=== PATIENT | male | born 1940 | race Caucasian/White ===

== ENCOUNTER 2021-11-08 13:10 | Emergency (ER) | payer MEDICARE, SELFPAY ==
[2021-11-08] VITALS (7 sets, daily range): BP systolic 130–164; BP diastolic 56–83; PULSE 68–80; RESP 16–18; TEMP 36.2–36.8; O2SAT 98–100
--- NOTE | ~2021-11-08 | CT_ITS ---
EXAMINATION: CT abdomen pelvis w con DATE: 11/08/2021 21:46 INDICATION: Constipation TECHNIQUE: Computed tomography (CT) of the abdomen and pelvis was performed with 100 mL Omnipaque-300 intravenous contrast. Automated exposure control and iterative reconstruction technique were employe d. The dose-length product was 772.90 mGy-cm. COMPARISON: None. FINDINGS: Lower thorax: Moderate coronary artery calcification Liver: Normal. Biliary/Gallbladder: Gallbladder is normal. No bile duct dilation. Pancreas: No mass or duct dilation. Spleen: Normal. Adrenals:No mass. Kidneys: No mass, stone, or hydronephrosis. GI tract: No small or large bowel dilation. Appendix not visualized. The rectum is dilated to 6.5 cm by formed stool. No significant wall thickening or inflammatory change. Diverticulosis without divert iculitis. Mesentery/Peritoneum: No ascites, mass, or free air. Retroperitoneum: No mass. Atherosclerotic abdominal aortic and/or arterial calcifications. Pelvis: Bladder distention and wall thickening, likely on the basis of outlet compromise from prostat omegaly. Soft Tissues: Soft tissues and body wall unremarkable. Bones: No acute osseous finding. IMPRESSION: No acute abdominopelvic process. Possible fecal impaction. Reviewed, dictated and finalized at location K.
--- NOTE | 2021-11-08 19:13 | ED.ABDPAIN ---
HPI - Abdominal Pain General Chief Complaint: Abdominal Pain Stated Complaint: constipation Time Seen by Provider: 11/08/21 18:57 History of Present Illness HPI narrative: 81-year-old male presented to the emergency department for evaluation of constipation. Patient does have worsening dementia per the patient's . states that he has no worsening altered mental status today. states that he has been having intermittent issues with constipation. Patient was evaluated emergency department at an outside hospital approximately 1 year ago and was diagnosed with constipation. states over the last few days he had increased difficulty passing stool and has been passing small stool balls. also reports that the patient has been doing self digital disimpaction. In the emergency department patient appears to be in no distress. Patient denies any complaints. Review of Systems Review of Systems: CONSTITUTIONAL: Denies fever, chills, or sweats. EYES: Denies visual changes, redness, or discharge. ENT: Denies rhinorrhea, congestion, sore throat, or otalgia. CARDIOVASCULAR: Denies chest pain, palpitations, or edema. RESPIRATORY: Denies cough or dyspnea. GASTROINTESTINAL: Constipation GENITOURINARY: Denies dysuria or hematuria. SKIN: Denies rash or itching. MUSCULOSKELETAL: Denies back pain, joint pain, or myalgia. NEUROLOGIC: Denies headache, numbness, or weakness. Dementia at baseline Exam Narrative: APPEARANCE: Well appearing, no pain, no distress, well-nourished. HEAD: normocephalic, atraumatic. EYES: PERRLA/EOMI, conjunctivae clear. NOSE: Normal no drainage THROAT: Pharynx clear, no exudate. NECK: Supple. No adenopathy, no masses. RESPIRATORY: Airway patent, respirations nonlabored. Clear to auscultation bilaterally, no rales, rhonchi, wheezing. CARDIOVASCULAR: Regular rate and rhythm without murmurs rubs or gallops. ABDOMINAL: Soft, nontender, nondistended, normal bowel sounds MUSCULOSKELETAL: Moves all extremities. Strength/ROM intact, No edema, No calf tenderness. NEURO: Alert. Cranial nerves II through XII intact. Good gait. Good coordination SKIN: Warm, dry. Normal Color Course Course Emergency Course: Patient and family were updated on the results of the work-up. Patient has no leukocytosis patient is afebrile. Patient's CMP is within normal limits. Patient has no evidence of urinary tract infection. CT scan did show possible fecal impaction. Family prefers discharge to home rather than to attempt enemas in the emergency department. Patient's was updated on the plan for increase fiber intake, increased MiraLAX dosing, water intake and to try enemas and suppositories as needed. All questions concerns were addressed. Patient was comfortable with discharge and close follow-up. Vital Signs Vital signs: Vital Signs Temperature 97.8 F 11/08/21 13:27 Pulse Rate 68 11/08/21 13:27 Respiratory Rate 18 11/08/21 13:27 Blood Pressure 132/56 L 11/08/21 13:27 Pulse Oximetry 100 11/08/21 13:27 Oxygen Delivery Room Air 11/08/21 13:27 Temperature 98.3 F 11/08/21 23:06 Pulse Rate 80 11/08/21 22:10 Respiratory Rate 16 11/08/21 22:10 Blood Pressure 148/74 H 11/08/21 22:10 Pulse Oximetry 98 11/08/21 22:10 Oxygen Delivery Room Air 11/08/21 13:27 MDM - Abdominal Pain Lab Data Attestation: I reviewed the patient's lab results. Result diagrams: 11/08/21 19:23 11/08/21 19:23 Labs: Lab Results 11/08/21 11/08/21 11/08/21 Range/Units 19:23 19:23 19:23 WBC 6.6 (4.5-10.0) K/mm3 RBC 4.49 L (4.6-6.20) M/mm3 Hgb 13.2 L (14.0-18.0) g/dL Hct 41.2 L (42.0-52.0) % MCV 91.8 (80-100) fl MCH 29.4 (26-34) pg MCHC 32.0 (32-36) g/dl RDW 13.6 (11.5-14.5) % Plt Count 234 (150-375) k/mm3 MPV 10.5 H (7.4-10.4) fl Immature Gran % (Auto) 0.3 (0-0.5) % Neut % (Auto) 58.7 (45.5-73.1) % Lymph % (Auto) 26
[2021-11-08 19:30] LABS: Basophils Absolute Auto 0.1 K/mm3 (0.0-0.1); Basophils Percent Auto 0.9 % (0.2-1.2); Eosinophils Absolute Auto 0.3 K/mm3 (0-0.3); Eosinophils Percent Auto 5.2 % (0-4.4); Hematocrit 41.2 % (42.0-52.0); Hemoglobin 13.2 g/dL (14.0-18.0); Immature Granulocyte Absolute 0.02 K/mm3 (0.00-0.031); Immature Granulocyte Percent A 0.3 % (0-0.5); Lymphocytes Absolute Auto 1.75 K/mm3 (0.9-3.2); Lymphocytes Percent Auto 26.7 % (18.3-44.2); Mean Corpuscular Hemoglobin 29.4 pg (26-34); Mean Corpuscular Volume 91.8 fl (80-100); Mean Platelet Volume 10.5 fl (7.4-10.4); Monocytes Absolute Auto 0.5 K/mm3 (0.1-0.6); Monocytes Percent Auto 8.2 % (2.6-8.5); Neutrophils Absolute Auto 3.9 K/mm3 (1.3-6.7); Neutrophils Percent Auto 58.7 % (45.5-73.1); Platelet Count Result 234 k/mm3 (150-375); Red Blood Count 4.49 M/mm3 (4.6-6.20); Red Cell Distribution Width 13.6 % (11.5-14.5); White Blood Count 6.6 K/mm3 (4.5-10.0)
[2021-11-08 19:41] LABS: Alanine Aminotransferase 10 U/L (6-50); Albumin Level 4.5 g/dL (3.5-5.1); Alkaline Phosphatase 59 U/L (38-126); Anion Gap 5 mmol/L (8-16); Aspartate Amino Transferase 25 U/L (17-59); Bilirubin,Total 0.7 mg/dL (0.2-1.3); Blood Urea Nitrogen 20 mg/dL (9-20); Calcium 8.9 mg/dL (8.4-10.2); Carbon Dioxide 29 mmol/L (22-30); Chloride 107 mmol/L (98-107); Estimated CRCL calculation 49 ml/min; Estimated Glomerular Filt Rate > 60; Glucose 98 mg/dL (65-110); Sodium 141 mmol/L (137-145)
[2021-11-08 19:42] LABS: Lactic Acid Reflex 0.9 mmol/L (0.7-2.0)
[2021-11-08 20:36] LABS: Appearance Urine Clear (Clear); Bilirubin Urine Negative (Negative); Blood Urine Negative (Negative); Color Urine Yellow (Yellow); Glucose Urine UA Negative (Negative); Ketones Urine Negative (Negative); Leukocyte Esterase Ur Negative LEU/UL (Negative); Nitrate Urine Negative (Negative); Protein Urine Negative (Negative); Urobilinogen Urine 0.2 mg/dL (<2.0)
[2021-11-08 20:50] LABS: Mucus Urine Rare /lpf; RBC Urine 0-2 /hpf (0-2); Squamous Epithelial Cell Urine Rare /hpf (Few); WBC Urine 0-3 /hpf
[2021-11-08 20:51] LABS: Add Urine Microscopic? YES
== END 2021-11-08 23:07 | disposition home or self-care (01) ==
PROVIDERS: Emergency Provider Emergency Medicine
DX: K59.00 Constipation, unspecified (principal)
CPT/HCPCS: 36415; 74177; 80053; 81001; 83605; 85025; 99284; Q9967

== ENCOUNTER 2022-05-27 15:07 | Emergency (ER) | payer MEDICARE, SELFPAY ==
--- NOTE | ~2022-05-27 | XR_ITS ---
XR hand RT min 3V DATE: 05/27/2022 15:47 INDICATION: Right fifth digit pain following fall today. TECHNIQUE: 3 views COMPARISON: None FINDINGS: There is diffuse osteopenia. There is a minimally displaced linear oblique intra-articular fracture of the medial base of the prox imal phalanx of the fifth digit. Probable old ununited fracture at the medial base of the proximal phalanx of the first digit. No other fracture or dislocation is evident. There is prominent osteoarthritic change at the first me tacarpophalangeal joint and third metacarpophalangeal joint, to a lesser extent second metacarpophala ngeal joint. There is mild osteoarthritis at the first carpometacarpal joint. Mild osteoarthritic inv olvement of some interphalangeal joints. IMPRESSION: Acute linear intra-articular fracture of the medial base of the proximal phalanx of fifth digit Osteopenia Polyarticular arthritis Probable old ununited fracture of the medial base of the proximal phalanx of the first digital Reviewed, dictated and finalized at location A. SETTER IMPRESSION: Acute linear intra-articular fracture of the medial base of the pro ximal phalanx of fifth digit Osteopenia Polyarticular arthritis Probable old ununited fracture of the medial base of the proximal phalanx of th e first digital
--- NOTE | ~2022-05-27 | CT_ITS ---
EXAMINATION: CT brain wo con DATE: 05/27/2022 16:58 INDICATION: Head injury TECHNIQUE: Computed tomography (CT) of the head was performed without intravenous contrast. Sagittal and coronal reconstructions were performed. The mA was adjusted according to patient size. Iterative reconstruction technique was employed. The dose-length product was 605.33 mGy-cm. COMPARISON: None FINDINGS: No fracture. No acute intracranial hemorrhage, acute infarction or abnormal extra axial fluid collect ion. Small region of encephalomalacia along the inferior anterior left frontal lobe which could repre sent sequela of the neck infarct or trauma. There is mild scattered white matter hypoattenuation cons istent with chronic small vessel ischemic disease. Symmetric prominence of the sulci and ventricles c onsistent with moderate age-appropriate diffuse cerebral and cerebellar volume loss. No mass/mass eff ect. Small amount of dependently layering fluid/mucus in the left maxillary sinus which can be seen w ith acute sinusitis. The orbits and mastoid air cells are normal. Intracranial calcified cerebral at herosclerosis is noted. IMPRESSION: 1. No fracture or acute intracranial process. 2. Small region of encephalomalacia along the inferior anterior left frontal lobe which could represe nt sequela of chronic infarct or trauma. 3. Age-related changes including moderate diffuse volume loss and mild scattered white matter hypoatt enuation consistent with chronic small vessel ischemic disease. 4. Small amount of dependently layering fluid/mucus in the left maxillary sinus which can be seen wit h acute sinusitis. Reviewed, dictated and finalized at location A. RITY SALES MANAGER IMPRESSION: 1. No fracture or acute intracranial process. 2. Small region of encephalomalacia along the inferior anterior left frontal lo be which could represent sequela of chronic infarct or trauma. 3. Age-related changes including moderate diffuse volume loss and mild scattere d white matter hypoattenuation consistent with chronic small vessel ischemic di sease. 4. Small amount of dependently layering fluid/mucus in the left maxillary sinus which can be seen with acute sinusitis.
[2022-05-27 15:04] VITALS: BP 114/85; PULSE 72; RESP 16; TEMP 36.8; O2SAT 95
--- NOTE | 2022-05-27 15:20 | ED.FALL ---
HPI - Fall General Chief Complaint: Fall Stated Complaint: fall Time Seen by Provider: 05/27/22 15:09 Source: EMS and RN notes reviewed Mode of arrival: EMS Limitations: dementia History of Present Illness HPI Narrative: This is an 81 year old male with history of dementia, anxiety, hypertension who presents from [facility] for evaluation after a fall. Patient had witnessed fall and his family was present today. It is reported that it was a mechanical fall and patient did not have loss of consciousness. He does not appear to be in antiplatelets or anticoagulation per medications list. Patient is unable to tell what happened due to dementia. He does reports right pinky pain. He has abrasion to right forehead and nose. He is at his baseline per nursing staff. Review of Systems Review of Systems: ROS unobtainable: Yes other (due to dementia) [facility] Past Medical History Medical History (Updated 05/27/22 @ 18:05 by Eva Mason MD) Anxiety Chronic kidney disease Dementia Hypertension Traumatic brain injury Surgical History Surgical History (Updated 05/27/22 @ 15:45 by Eva Mason MD) Surgical history unknown Social History Social History (Updated 05/27/22 @ 15:45 by Eva Mason MD) Smoking status: Smoker, status unknown Exam Const: General: no acute distress and alert Nutritional Appearance: well nourished Other: abrasion to right forehead, abrasion to nose. pleasant, confused HENMT: Other: abrasion to right forehead, abrasion to nasal bridge but no deformity Eyes: Pupils: Equal, round and reactive pupils present EOM: EOMs intact bilaterally Chest: Chest palpation & inspection: normal inspection of the chest Resp: Effort & Inspection: normal respiratory effort Auscultation: clear to auscultation bilaterally Cardio: Rate: regular rate Rhythm: regular rhythm Heart sounds: no murmurs GI: GI Palp: Yes Soft to palpation, No Tenderness to palpation present (GI), No Guarding due to palpation present (GI) and No Rigid due to palpation Auscultation: normal bowel sounds Skin: Wounds: wounds noted (abrasion right forehead) Neuro: General: moves all extremities, no meningeal signs and CN's II-XI intact bilaterally Extrem: Other: right small finger tenderness, no deformity, no bruisingl Psych: Mental Status: mental status grossly normal Course Vital Signs Vital signs: Vital Signs Temperature 98.2 F 05/27/22 15:04 Pulse Rate 72 05/27/22 15:04 Respiratory Rate 16 05/27/22 15:04 Blood Pressure 114/85 05/27/22 15:04 Pulse Oximetry 95 05/27/22 15:04 Oxygen Delivery Room Air 05/27/22 15:04 Temperature 98.2 F 05/27/22 15:04 Pulse Rate 84 05/27/22 18:51 Respiratory Rate 12 05/27/22 18:51 Blood Pressure 130/84 05/27/22 18:51 Pulse Oximetry 98 05/27/22 18:51 Oxygen Delivery Room Air 05/27/22 15:04 MDM - Fall MDM Narrative Medical decision making narrative: DDX includes but is not limited to: intracranial hemorrhage, mechanical fall, finger contusion, abrasion, finger fracture Co-morbidities complicating care: dementia External Chart Review: none available Hx from independent Sources: Discussion of Management: I Discussed with and she is aware of finger fracture Independent interpretation of studies: none Dx tests considered but not ordered: cbc, cmp, UA, EKG Shared decision making:I Discussed with that patient had xray of hand and CT brain for evaluation of mechanical fall. She agrees patient did trip to fall. I discussed that since patient presented with mechanical fall that labs were not done. His vitals are normal. We discussed if labs should be done and she agrees with no labs. I also discussed finger fracture in which we normally place finger splint. She does not think he will leave it on and she is agreeable with no splint . Procedures: None Interventions:none Imaging Data Radiologist's impression: ITS Imp
[2022-05-27 18:51] VITALS: BP 130/84; PULSE 84; RESP 12; O2SAT 98
== END 2022-05-27 18:59 | disposition home or self-care (01) ==
PROVIDERS: Emergency Provider General Practice
DX: S62.616A Displaced fracture of proximal phalanx of right little finger, initial encounter for closed fracture (principal); S00.31XA Abrasion of nose, initial encounter; S00.81XA Abrasion of other part of head, initial encounter; F03.90 Unspecified dementia, unspecified severity, without behavioral disturbance, psychotic disturbance, mood disturbance, and anxiety; I12.9 Hypertensive chronic kidney disease with stage 1 through stage 4 chronic kidney disease, or unspecified chronic kidney disease; N18.9 Chronic kidney disease, unspecified; Z87.820 Personal history of traumatic brain injury; M19.042 Primary osteoarthritis, left hand; M85.841 Other specified disorders of bone density and structure, right hand; G93.89 Other specified disorders of brain; W01.0XXA Fall on same level from slipping, tripping and stumbling without subsequent striking against object, initial encounter
CPT/HCPCS: 70450; 73130; 99284

== ENCOUNTER 2022-08-24 21:16 | Emergency (ER) | payer MEDICARE, SELFPAY ==
[2022-08-24 21:46] VITALS: BP 167/80; PULSE 78; RESP 16; TEMP 36.3; O2SAT 96
--- NOTE | 2022-08-24 22:00 | PC.NURSE ---
Patient uncooperative and combative with attempt to get labs. Patient family by his side.
--- NOTE | 2022-08-25 01:06 | PC.NURSE ---
Patient combative and uncooperative with repeat VS. Patient's family at bedside.
[2022-08-25 02:16] VITALS: BP 150/67; PULSE 66; RESP 16; O2SAT 95
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
--- NOTE | 2022-08-25 02:26 | PC.NURSE ---
Patients family requests to speak with ERP, ERP notified.
[2022-08-25] MEDS: LORazepam INJ (*CRX) 2 MG/ML VIAL 1 MG IM (02:54)
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
--- NOTE | 2022-08-25 04:39 | ED.GENADULT ---
HPI - General Adult General Chief complaint: Abdominal Pain Stated complaint: Abd pain, back pain Time Seen by Provider: 08/25/22 01:01 History of Present Illness HPI narrative: Patient 82-year-old gentleman who presents emergency department with chief complaint of abdominal discomfort and back discomfort. The patient has had decreased bowel movements recently and then noticed that his urine has been a little darker than normal. The patient reports that on arrival to the emergency department he is feeling a little better but also does have history of dementia and has been not so cooperative. Related Data Home Medications Medication Instructions Recorded Confirmed acetaminophen 300 mg-codeine 30 mg tablet 08/25/22 tablet cholecalciferol (vitamin D3) 50 50 mcg PO DAILY 08/25/22 mcg (2,000 unit) tablet cyanocobalamin (vitamin B-12) 2,500 mcg PO DAILY 08/25/22 2,500 mcg chewable tablet fenofibrate micronized 200 mg mg 08/25/22 capsule magnesium 200 mg tablet 200 mg PO DAILY 08/25/22 memantine 28 mg capsule mg PO 08/25/22 sprinkle,extended release 24hr polyethylene glycol 3350 17 g 08/25/22 gram/dose oral powder quetiapine 25 mg tablet mg 08/25/22 rivastigmine tartrate 4.5 mg mg 08/25/22 capsule simvastatin 20 mg tablet mg 08/25/22 Allergies Allergy/AdvReac Type Severity Reaction Status Date / Time naproxen Allergy Other Verified 08/24/22 21:18 Penicillins Allergy Other Verified 08/24/22 21:18 Review of Systems Review of Systems: A 10 system review of systems was completed on the patient and is negative except for what is stated in the HPI. Nursing and ancillary documentation was reviewed. PMFSH Past Medical History Medical History Anxiety Chronic kidney disease Dementia Hypertension Traumatic brain injury Surgical History Surgical History Surgical history unknown Social History Social History Smoking status: Smoker, status unknown Exam Narrative: GENERAL: Well-appearing, well-nourished, and in no acute distress. HEAD: Normocephalic, atraumatic. EYES: PERRLA and EOMI. ENT: Nares clear, no rhinorrhea or epistaxis. Mucous membranes moist. NECK: Supple. CHEST: Clear to auscultation. No respiratory distress. HEART: Regular rate and rhythm. No murmur heard. Normal peripheral pulses. ABDOMEN: Soft, nontender, nondistended, normal active bowel sounds. EXTREMITIES: Normal range of motion. No edema. SKIN: Warm, dry, no rash. NEURO: No focal deficits. Alert and pleasantly confused. PSYCH: Normal mood and affect. Course Vital Signs Vital signs: Vital Signs Temperature 36.3 C L 08/24/22 21:46 Pulse Rate 78 08/24/22 21:46 Respiratory Rate 16 08/24/22 21:46 Blood Pressure 167/80 H 08/24/22 21:46 Pulse Oximetry 96 08/24/22 21:46 Oxygen Delivery Room Air 08/24/22 21:46 Temperature 36.3 C L 08/24/22 21:46 Pulse Rate 66 08/25/22 02:16 Respiratory Rate 16 08/25/22 02:16 Blood Pressure 150/67 H 08/25/22 02:16 Pulse Oximetry 95 08/25/22 02:16 Oxygen Delivery Room Air 08/24/22 21:46 Medical Decision Making MDM Narrative Medical decision making narrative: Differential diagnosis includes bowel obstruction, constipation, UTI, After made to draw blood from the patient and obtain urine and get a CT scan. The patient was uncooperative and belligerent due to his underlying dementia Patient was given a milligram of Ativan and is still not cooperative for labs. In discussion with the family this has been more of a chronic issue for the patient and at this time they are wishing to not do further interventions in the emergency department. They were offered additional sedation and evaluation the family has opted for outpatient follow-up. Vital Signs Vit
== END 2022-08-25 05:13 ==
PROVIDERS: Emergency Provider Emergency Medicine; PCP Family Medicine
DX: R10.84 Generalized abdominal pain (principal); F03.90 Unspecified dementia, unspecified severity, without behavioral disturbance, psychotic disturbance, mood disturbance, and anxiety; I12.9 Hypertensive chronic kidney disease with stage 1 through stage 4 chronic kidney disease, or unspecified chronic kidney disease; N18.9 Chronic kidney disease, unspecified; F17.200 Nicotine dependence, unspecified, uncomplicated; F41.9 Anxiety disorder, unspecified; Z87.820 Personal history of traumatic brain injury
CPT/HCPCS: 96372; 99283; J2060

== ENCOUNTER 2023-07-05 15:20 | Inpatient (IN) | payer MEDICARE, SELFPAY ==
--- NOTE | ~2023-07-05 | XR_ITS ---
EXAMINATION: XR chest 1V portable DATE: 07/05/2023 18:01 INDICATION: Chest pain. TECHNIQUE: A single frontal view of the chest was obtained. COMPARISON: CT abdomen and pelvis 11/08/2021 FINDINGS: There is a mass in right lung upper lobe. No pleural effusion or pneumothorax. The heart si ze is normal. IMPRESSION: 1. Right lung mass suspicious for primary bronchogenic carcinoma. Noncontrast chest CT is recommended . I called this result to Dr. Quick. Reviewed, dictated and finalized at location E. ASOUND TECHNOLOGIST IMPRESSION: 1. Right lung mass suspicious for primary bronchogenic carcinoma. Noncontrast c hest CT is recommended. I called this result to Dr. Quick.
--- NOTE | ~2023-07-05 | CT_ITS ---
EXAMINATION:CT diagnostic chest wo con DATE: 07/05/2023 18:31 INDICATION: Lung mass. TECHNIQUE: Computed tomography (CT) of the chest was performed without intravenous contrast. Automate d exposure control and iterative reconstruction technique were employed. The dose-length product (DLP ) was 258.80 mGy-cm. COMPARISON: CT abdomen and pelvis 11/08/2021 FINDINGS: There are airspace and groundglass opacities in right lung upper lobe, consistent with pneu monia. There is mild atelectasis bilaterally. A calcified right lung nodule and calcified right hilar and mediastinal lymph nodes are consistent with old granulomatous disease. There is a small right pl eural effusion. The heart size is normal. No pericardial effusion. There are coronary artery calcific ations. There are calcifications of the aortic valve. Calcifications in the spleen are consistent wit h old granulomatous disease. There is severe thoracic spondylosis. There is mild chronic anterior wed ging of multiple vertebral bodies. IMPRESSION: 1. Right upper lobe pneumonia. Follow-up radiographs are recommended in a few weeks to confirm resolu tion and exclude malignancy. 2. Small right pleural effusion. Reviewed, dictated and finalized at location E. [employer] LE[employer]ER IMPRESSION: 1. Right upper lobe pneumonia. Follow-up radiographs are recommended in a few w eeks to confirm resolution and exclude malignancy. 2. Small right pleural effusion.
[2023-07-05 15:16] VITALS: BP 140/97; PULSE 73; RESP 18; TEMP 36.7; O2SAT 96
[2023-07-05 15:29] VITALS: PULSE 74; O2SAT 96
--- NOTE | 2023-07-05 15:35 | ECG_ITS ---
Measurements Intervals [place] Rate: 70 P: 82 NV: 206 QRS: -50 QRSD: 100 T: 68 QT: 395 QTc: 428 Interpretive Statements SINUS RHYTHM BASELINE ARTIFACT LEFT ANTERIOR FASCICULAR BLOCK [QRS AXIS <= -45, QR IN I, RS IN II] MODERATE VOLTAGE CRITERIA FOR LVH, CONSIDER NORMAL VARIANT [MEETS CRITERIA IN ONE OF: R(aVL), S(V1), R(V5), R(V5/V6)+S(V1)] POSSIBLE ANTEROSEPTAL MYOCARDIAL INFARCTION , OF INDETERMINATE AGE [30 ms Q WAVE IN V1- V4] ABNORMAL ECG NO PREVIOUS ECG AVAILABLE FOR COMPARISON Electronically Signed On 07-06-2023 14:35:27 SOLDERER by Chi Gore M.D.
[2023-07-05 16:43] VITALS: BP 140/98; PULSE 75; RESP 18; O2SAT 98
--- NOTE | 2023-07-05 17:24 | ED.GENADULT ---
HPI - General Adult General Chief complaint: Unspecified Stated complaint: cp Source: family and EMS Mode of arrival: EMS Limitations: dementia History of Present Illness HPI narrative: 83 YEARS OLD WHITE MALE CAME [facility] WITH HIS WAS TELLING ME THAT PATIENT COMPLAINING OF RIGHT CHEST PAIN STARTED AT 11:00 A.M. TODAY. SHE IS TELLING ME THAT PATIENT BEEN ACTING FUNNY AND HAVE HEALING TROUBLE AND DOES NOT UNDERSTAND MOST OF HER WHAT SHE IS TALKING ABOUT FOR ALMOST 1 WEEK. PATIENT NORMALLY WALKS WITHOUT FREIGHT SALES BROKER, HIS DAUGHTER HAVE THE POWER OF [employer] [employer] [place] [employer], PATIENT BEEN HAVING GOOD APPETITE FOR MONTHS AND AGAIN TO A LOT OF WEIGHT OVER THE LAST FEW MONTHS. PATIENT IS AWAKE, DISORIENTED TIME 4, DOES NOT KNOW WHERE HE HURTING, BUT HOLDING THE RIGHT SIDE OF CHEST. HISTORY OF CORONARY STENTS YEARS AGO, DEMENTIA. Related Data Home Medications Medication Instructions Recorded Confirmed magnesium 200 mg tablet 200 mg PO DAILY 08/25/22 10/30/22 acetaminophen 500 mg capsule 500 mg PO Q6H PRN fever or pain 10/30/22 10/30/22 cholecalciferol (vitamin D3) 50 2,000 unit PO DAILY 10/30/22 10/30/22 mcg (2,000 unit) tablet cyanocobalamin (vitamin B-12) 2,500 mcg PO DAILY 10/30/22 10/30/22 2,500 mcg chewable tablet polyethylene glycol 3350 17 17 g PO DAILY 10/30/22 10/30/22 gram/dose oral powder quetiapine 25 mg tablet 12.5 mg PO QHS 11/22/22 Allergies Allergy/AdvReac Type Severity Reaction Status Date / Time No Known Allergies Allergy Unverified 11/06/22 15:05 Review of Systems Review of Systems: All systems reviewed & are unremarkable except as noted in HPI and below PMFSH Past Medical History Medical History Alzheimer's dementia (~2004) Anemia hemoglobin 13.2 on 11/08/2022. 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 BMI 27.0-27.9,adult Cervical spinal stenosis Chronic kidney disease Chronic low back pain without sciatica Dementia Hypertension Insomnia Overweight (BMI 25.0-29.9) Pain of right thumb (~01/2023) Traumatic brain injury Vitamin B12 deficiency Vitamin D insufficiency Surgical History Surgical History S/P angioplasty with stent (~1996) Surgical history unknown Family History Family History Daughter Asthma Hypertension Thyroid disorder Son Asthma Hypertension Other Cancer Grandparent Cancer Father Hypertension Heart disease Sibling Hypertension Heart disease Alzheimer disease Social History Social History Smoking status: Never smoker Alcohol intake: former Substance use: never Substance use type: does not use Lack of Transportation: YES Lack of Food: Never True Current Housing: I Have Housing Concerned About Future Housing: No Difficulty Paying Gas/Electric Bills: No Difficulty Paying for Meds: No Currently Unemployed: No Education: Master's Degree or Higher Difficulty w/ Childcare or Family Care: No Exam Narrative: GENERAL APPEARANCE: WELL-DEVELOPED, WELL-NOURISHED SKIN: NORMAL COLOR HEAD: NORMOCEPHALIC, NONTRAUMATIC EYES: CLEAR CONJUNCTIVA ENT: OROPHARYNX NORMAL, EARS NORMAL, NOSE NORMAL NECK: SUPPLE, NONTENDER CHEST AND RESPIRATORY: AIRWAY PATENT, NO RESPIRATORY DISTRESS, NO ACCESSORY MUSCLE USE HEART: REGULAR RATE/RHYTHM ABDOMEN: SOFT, NONTENDER, NO ORGANOMEGALY, QUIET BOWEL SOUNDS VASCULAR: NORMAL PERIPHERAL PULSES, NORMAL CAPILLARY REFILL. MUSCULOSKELETAL: NORMAL RANGE OF MOTION, NONTENDER BACK NEUROLOGIC: AWAKE, ALERT, DISORIENTED TIME FOR, SAYING NONE SENSE
[2023-07-05 17:59] LABS: Basophils Absolute Auto 0.1 K/mm3 (0.0-0.1); Basophils Percent Auto 0.5 % (0.2-1.2); Eosinophils Absolute Auto 0.3 K/mm3 (0-0.3); Eosinophils Percent Auto 2.1 % (0-4.4); Hemoglobin 13.1 g/dL (14.0-18.0); Immature Granulocyte Absolute 0.06 K/mm3 (0.00-0.031); Immature Granulocyte Percent A 0.5 % (0-0.5); Lymphocytes Absolute Auto 2.29 K/mm3 (0.9-3.2); Lymphocytes Percent Auto 17.8 % (18.3-44.2); Mean Corpuscular HGB Conc 31.2 g/dl (32-36); Mean Corpuscular Hemoglobin 29.2 pg (26-34); Mean Corpuscular Volume 93.5 fl (80-100); Mean Platelet Volume 10.4 fl (7.4-10.4); Monocytes Percent Auto 7.9 % (2.6-8.5); Neutrophils Absolute Auto 9.2 K/mm3 (1.3-6.7); Neutrophils Percent Auto 71.2 % (45.5-73.1); Platelet Count Result 247 k/mm3 (150-375); Red Blood Count 4.49 M/mm3 (4.6-6.20); Red Cell Distribution Width 13.3 % (11.5-14.5); White Blood Count 12.9 K/mm3 (4.5-10.0)
[2023-07-05] MEDS: ASPIRIN 81 MG CHEWABLE TABLET 324 MG PO (18:03)
[2023-07-05 18:10] LABS: Prothrombin Time 13.8 Seconds (11.1-14.7)
[2023-07-05 18:11] LABS: Partial Thromboplastin Time 38.3 SECONDS (22.3-36.8)
[2023-07-05 18:14] LABS: D Dimer 0.77 ug/mL (<0.48)
[2023-07-05 18:32] LABS: Alanine Aminotransferase 23 U/L (6-50); Alkaline Phosphatase 88 U/L (38-126); Anion Gap 5 mmol/L (8-16); Aspartate Amino Transferase 28 U/L (17-59); Bilirubin,Total 0.8 mg/dL (0.2-1.3); Blood Urea Nitrogen 22 mg/dL (9-20); Calcium 9.4 mg/dL (8.4-10.2); Carbon Dioxide 32 mmol/L (22-30); Chloride 105 mmol/L (98-107); Estimated CRCL calculation 71 ml/min; Estimated Glomerular Filt Rate > 60; Glucose 120 mg/dL (65-110); Lipase 35 U/L (23-300); Potassium 4.2 mmol/L (3.4-5.0); Sodium 142 mmol/L (137-145)
[2023-07-05 18:42] LABS: NT Pro B Type Natriuretic Pept 79 pg/mL (19.9-100); Troponin I < 0.012 ng/mL (0.000-0.034)
[2023-07-05 18:46] VITALS: BP 150/98; PULSE 73; RESP 18; O2SAT 99
[2023-07-05 19:13] LABS: Appearance Urine Clear (Clear); Bacteria Urine None Seen /hpf; Bilirubin Urine 1+ (Negative); Blood Urine Negative (Negative); Color Urine Dark Yellow (Yellow); Glucose Urine UA Negative (Negative); Ketones Urine Trace mg/dL (Negative); Leukocyte Esterase Ur Trace LEU/UL (Negative); Nitrate Urine Negative (Negative); Non Pathogenic Casts 0-2; Protein Urine Negative (Negative); RBC Urine 0-2 /hpf (0-2); Specific Grav Ur 1.032 (1.001-1.035); Squamous Epithelial Cell Urine None seen /hpf (Few); WBC Urine 0-5 /hpf
--- NOTE | 2023-07-05 19:19 | PC.NURSE ---
Assumed care of pt from CLEMENTE Kulkarni at this time. Pt resting comfortably in bed with at bedside.
[2023-07-05 19:23] LABS: Add Urine Microscopic? YES
[2023-07-05 19:30] VITALS: BP 145/96; PULSE 71; RESP 16; O2SAT 97
--- NOTE | 2023-07-05 20:37 | PM.IMHP ---
H&P: HPI History of Present Illness Date/Time: 07/05/23 20:37 Chief Complaint: ams Narrative: This is an 83-year-old male with past medical history significant for Alzheimer's dementia, anxiety, cervical spinal stenosis, chronic kidney disease, chronic lock back pain, hypertension, traumatic brain injury, coronary artery disease. Patient was brought to the emergency room due to altered mental status. Patient is disoriented unable to provide any history most of the history has been obtained from daughter and were at bedside. At the time of my visit patient was stuporous unable to give any history. In emergency room preliminary workup was significant for CT of the chest with right upper lobe pneumonia. EXAMINATION: XR chest 1V portable DATE: 07/05/2023 18:01 INDICATION: Chest pain. TECHNIQUE: A single frontal view of the chest was obtained. COMPARISON: CT abdomen and pelvis 11/08/2021 FINDINGS: There is a mass in right lung upper lobe. No pleural effusion or pneumothorax. The heart size is normal. IMPRESSION: 1. Right lung mass suspicious for primary bronchogenic carcinoma. Noncontrast chest CT is recommended. I called this result to Dr. Quick. EXAMINATION:CT diagnostic chest wo con DATE: 07/05/2023 18:31 INDICATION: Lung mass. TECHNIQUE: Computed tomography (CT) of the chest was performed without intravenous contrast. Automated exposure control and iterative reconstruction technique were employed. The dose-length product (DLP) was 258.80 mGy-cm. COMPARISON: CT abdomen and pelvis 11/08/2021 FINDINGS: There are airspace and groundglass opacities in right lung upper lobe, consistent with pneumonia. There is mild atelectasis bilaterally. A calcified right lung nodule and calcified right hilar and mediastinal lymph nodes are consistent with old granulomatous disease. There is a small right pleural effusion. The heart size is normal. No pericardial effusion. There are coronary artery calcifications. There are calcifications of the aortic valve. Calcifications in the spleen are consistent with old granulomatous disease. There is severe thoracic spondylosis. There is mild chronic anterior wedging of multiple vertebral bodies. IMPRESSION: 1. Right upper lobe pneumonia. Follow-up radiographs are recommended in a few weeks to confirm resolution and exclude malignancy. 2. Small right pleural effusion. Review of Systems Review of Systems: ROS unobtainable: Yes unobtainable due to mental status (Stuporous) PMFSH Past Medical History Medical History Alzheimer's dementia (~2004) Anemia hemoglobin 13.2 on 11/08/2022. Anxiety Atherosclerotic heart disease of [place] coronary artery without angina pectoris (~1995) stent in 1995 BMI 27.0-27.9,adult Cervical spinal stenosis Chronic kidney disease Chronic low back pain without sciatica Dementia Hypertension Insomnia Overweight (BMI 25.0-29.9) Pain of right thumb (~01/2023) Traumatic brain injury Vitamin B12 deficiency Vitamin D insufficiency Surgical History Surgical History S/P angioplasty with stent (~1996) Surgical history unknown Family History Family History Daughter Asthma Hypertension Thyroid disorder Son Asthma Hypertension Other Cancer Grandparent Cancer Father Hypertension Heart disease Sibling Hypertension Heart disease Alzheimer disease Social History Social History Smoking status: Never smoker Alcohol intake: never Substance use: never Substance use type: does not use Lack of Transportation: YES Lack of Food: Never True Current Housing: I Have Housing Concerned About Future Housing: No Difficulty Paying Gas/Electric Bills: No Difficulty Paying for Meds: No Currently Unemployed: No Education: Master's
[2023-07-05] MEDS: LORazepam INJ (*CRX) 2 MG/ML VIAL 1 MG IV PUSH (20:50)
[2023-07-05 21:32] VITALS: BP 152/97; PULSE 75; RESP 19; O2SAT 97
[2023-07-05 21:38] LABS: CRP 12.6 mg/dL (<1.0)
[2023-07-05] MEDS: PIPERACILLIN/TAZ 4.5G/NS 100ML 4.5 GM/100 ML BAG IVPB (21:40)
[2023-07-05 21:57] LABS: Lactic Acid Reflex 1.1 mmol/L (0.7-2.0)
--- NOTE | 2023-07-05 22:15 | ADMGEN ---
This patient, Bala Alcazar, was admitted to 3 [facility] Surg Room 333-01. Patient/family oriented to hospital policies and general routines including ID bracelet, bed and alarms, visiting hours, pain management, procedures, bathroom and other care routines, personal items, smoking policy, room service/diet, and visiting hours. Information on how to activate the Rapid Response Team has been discussed. Patient/Family are encouraged to report perceived risks to care and to ask questions if they do not understand what they are told or what they should do.
[2023-07-05 22:22] LABS: Influenza A QL RT-PCR Negative (Negative); Influenza B QL RT-PCR Negative (Negative); RSV RNA, RT-PCR Negative (Negative); SARS-CoV-2 RNA PCR Negative (Negative)
[2023-07-05] MEDS: SODIUM CHLORIDE 0.9% IV 1,000 ML 75 ML IV CONT (22:53)
[2023-07-05] MEDS: levoFLOXacin 750 MG/D5W 150 ML 750 MG/150 ML BAG 100 MG IVPB (22:53)
[2023-07-06] VITALS (10 sets, daily range): BP systolic 130–148; BP diastolic 68–93; PULSE 73–79; RESP 14–18; TEMP 36.5–37.6; O2SAT 96–98
[2023-07-06 00:35] LABS: Troponin I < 0.012 ng/mL (0.000-0.034)
[2023-07-06] MEDS: PIPERACILLIN/TAZ 4.5G/NS 100ML 4.5 GM/100 ML BAG IVPB ×4 (05:35→23:30)
[2023-07-06] MEDS: IPRATROPIUM 0.5 MG/ALBUTEROL SULFATE 2.5 MG AMPUL.NEB 3 ML INHALATION ×3 (07:31→19:42)
--- NOTE | 2023-07-06 07:59 | PM.IMPN ---
Progress Note: A&P Assessment and Plan (1) Pneumonia: Code(s): J18.9 - Pneumonia, unspecified organism Status: Acute (2) Alzheimer's dementia: Onset Date: ~2004 Qualifiers: Alzheimer's disease onset: late onset Dementia severity: severe Dementia behavioral or psychological symptom: with mood disturbance Qualified Code(s): G30.1 - Alzheimer's disease with late onset; F02.C3 - Dementia in other diseases classified elsewhere, severe, with mood disturbance Code(s): G30.9 - Alzheimer's disease, unspecified; F02.80 - Dementia in other diseases classified elsewhere, unspecified severity, without behavioral disturbance, psychotic disturbance, mood disturbance, and anxiety Status: Acute Plan This is an 83-year-old male with past medical history significant for Alzheimer's dementia, anxiety, cervical spinal stenosis, chronic kidney disease, chronic lock back pain, hypertension, traumatic brain injury, coronary artery disease.? Patient was brought to the emergency room due to altered mental status.?? Acute encephalopathy Due to multiple comorbidities, including dementia, worsening mental status because of pneumonia, dehydration CT shows pneumonia, patient leukocytosis BUN creatinine ratio 22/0.7 suggesting dehydration Switch from normal saline to D5 half-normal saline Neuro check fall precaution (1) Pneumonia: ?Code(s): J18.9 - Pneumonia, unspecified organism ?Status:?Acute ?Assessment and Plan: CT of the chest with right upper lobe pneumonia. Patient has leukocytosis 12,900, Admit to regular medical floor Patient started on antibiotic Await cultures Follow-up procalcitonin Requested speech evaluation, unable to perform because patient was unable to follow commands Risk of aspiration, continue Zosyn (2) Cervical spinal stenosis: ?Code(s): M48.02 - Spinal stenosis, cervical region ?Status:?Acute ?Assessment and Plan: Continue to monitor (3) Chronic low back pain without sciatica: ?Qualifiers: ?Back pain laterality:?midline? Qualified Code(s):?M54.50 - Low back pain, unspecified; G89.29 - Other chronic pain ?Code(s): M54.50 - Low back pain, unspecified; G89.29 - Other chronic pain ?Status:?Acute ?Assessment and Plan: Tylenol p.r.n. (4) Alzheimer's dementia: ?Onset Date:?Qualifiers: ?Alzheimer's disease onset:?late onset??Dementia behavioral or psychological symptom:?with mood disturbance??Dementia severity:?severe? Qualified Code(s):?G30.1 - Alzheimer's disease with late onset; F02.C3 - Dementia in other diseases classified elsewhere, severe, with mood disturbance ?Code(s): G30.9 - Alzheimer's disease, unspecified; F02.80 - Dementia in other diseases classified elsewhere, unspecified severity, without behavioral disturbance, psychotic disturbance, mood disturbance, and anxiety ?Status:?Acute ?Assessment and Plan: Continue memantine Subjective Date/time seen: 07/06/23 07:59 Interval history: I saw exam patient in presents of patient's at bedside, patient is lethargic, unable to provide history, cannot recall what happened to him. Per patient's , patient has been having confused in past 2 days, general weakness. Per patient's , patient did have nausea vomiting diarrhea. Patient was able to follow commands, Exam Narrative: GENERAL: in no acute distress. Well-nourished. - EYES: EOMI. Anicteric. - HENT: Dry mucous membranes. - LUNGS: Clear to auscultation bilaterally, no wheezing, rhonchi, or rales. - CARDIOVASCULAR: Regular rate and rhythm. No murmur. No JVD. - ABDOMEN: Soft, non-tender and non-distended. No palpable masses. - EXTREMITIES: No edema. Peripheral pulses 2+. Non-tender. - NEUROLOGIC: No focal neurological deficits. CN II-XII grossly intact. General weakness - PSYCHIATRIC: Awake, Alert and not oriented x 3. Appropriate mood and affect. - SKIN: No rashes or l
--- NOTE | 2023-07-06 10:39 | PCSTNOTE ---
Bedside swallowing evaluation completed. Patient seen bedside with head of bed elevated to achieve upright positioning of torso, neck, and head. Bedside sitter present. Unable to perform oral peripheral examination as patient has difficulty following instructions and cues (verbal, visual, and tactile) are inconsistently effective. Patient mostly alert but grabbing at things that aren't there and distracted by objects in his line of sight. Trials of thin liquid (water) by spoon, cup, and straw were given. No signs of aspiration observed, however, there was minimal anterior loss of bolus and patient was reluctant to take sips from cup. Trial with straw was unsuccessful and patient chewed and moved straw around in his lips randomly. Trial of pureed consistency was given (applesauce) by spoon, and patient was able to swallow without signs of aspiration. Solid consistency was not trialed as patient is at risk for choking on solids due to his level of confusion. Recommendations: Patient showed no signs of aspiration during this bedside swallowing evaluation, but is at risk of aspiration and choking and is not a candidate for a modified barium swallow study due to his level of confusion and difficulty following directions. Although patient showed no signs of aspiration at bedside there is the possibility that he silently aspirates or that he aspirates at times during the course of a typical day. Recommendations for this patient at this time are pureed diet with mildly thickened liquids and adherence to strict swallowing precautions placed in chart. No straws, only one on one supervision when eating/drinking, position upright and remain upright for 30 minutes after eating or drinking, small bolus size, one bite/sip at a time. Minimize distractions. Speech therapy is not recommended at this time. Thank you for this referral.
[2023-07-06] MEDS: DEXTROSE 5%/0.45% SOD CHL 1,000 ML 125 ML IV CONT (12:13)
[2023-07-06] MEDS: levoFLOXacin 750 MG/D5W 150 ML 750 MG/150 ML BAG 100 MG IVPB (21:15)
[2023-07-07] VITALS (9 sets, daily range): BP systolic 135–148; BP diastolic 82–98; PULSE 71–76; RESP 18–20; TEMP 36.4–36.9; O2SAT 95–100
[2023-07-07] MEDS: IPRATROPIUM 0.5 MG/ALBUTEROL SULFATE 2.5 MG AMPUL.NEB 3 ML INHALATION ×4 (02:34→20:28)
[2023-07-07] MEDS: PIPERACILLIN/TAZ 4.5G/NS 100ML 4.5 GM/100 ML BAG IVPB ×4 (05:05→23:32)
[2023-07-07] MEDS: DEXTROSE 5%/0.45% SOD CHL 1,000 ML 125 ML IV CONT ×3 (08:50→20:00)
[2023-07-07 09:50] LABS: Basophils Percent Auto 0.4 % (0.2-1.2); Eosinophils Absolute Auto 0.2 K/mm3 (0-0.3); Eosinophils Percent Auto 1.6 % (0-4.4); Hematocrit 41.5 % (42.0-52.0); Hemoglobin 12.9 g/dL (14.0-18.0); Immature Granulocyte Absolute 0.05 K/mm3 (0.00-0.031); Immature Granulocyte Percent A 0.5 % (0-0.5); Lymphocytes Absolute Auto 1.39 K/mm3 (0.9-3.2); Lymphocytes Percent Auto 14.4 % (18.3-44.2); Mean Corpuscular HGB Conc 31.1 g/dl (32-36); Mean Corpuscular Hemoglobin 29.1 pg (26-34); Mean Corpuscular Volume 93.5 fl (80-100); Mean Platelet Volume 10.9 fl (7.4-10.4); Monocytes Absolute Auto 0.7 K/mm3 (0.1-0.6); Monocytes Percent Auto 6.7 % (2.6-8.5); Neutrophils Absolute Auto 7.4 K/mm3 (1.3-6.7); Neutrophils Percent Auto 76.4 % (45.5-73.1); Platelet Count Result 221 k/mm3 (150-375); Red Blood Count 4.44 M/mm3 (4.6-6.20); Red Cell Distribution Width 12.8 % (11.5-14.5); White Blood Count 9.6 K/mm3 (4.5-10.0)
[2023-07-07 10:01] LABS: Anion Gap 11 mmol/L (8-16); Blood Urea Nitrogen 11 mg/dL (9-20); Calcium 9.1 mg/dL (8.4-10.2); Carbon Dioxide 21 mmol/L (22-30); Chloride 107 mmol/L (98-107); Estimated CRCL calculation 71 ml/min; Estimated Glomerular Filt Rate > 60; Glucose 109 mg/dL (65-110); Magnesium 2.1 mg/dL (1.6-2.3); Phosphorus 3.5 mg/dL (2.5-4.5); Potassium 3.7 mmol/L (3.4-5.0); Sodium 139 mmol/L (137-145)
--- NOTE | 2023-07-07 17:50 | PM.IMPN ---
Progress Note: A&P Assessment and Plan (1) Pneumonia: Code(s): J18.9 - Pneumonia, unspecified organism Status: Acute (2) Alzheimer's dementia: Onset Date: ~2004 Qualifiers: Alzheimer's disease onset: late onset Dementia severity: severe Dementia behavioral or psychological symptom: with mood disturbance Qualified Code(s): G30.1 - Alzheimer's disease with late onset; F02.C3 - Dementia in other diseases classified elsewhere, severe, with mood disturbance Code(s): G30.9 - Alzheimer's disease, unspecified; F02.80 - Dementia in other diseases classified elsewhere, unspecified severity, without behavioral disturbance, psychotic disturbance, mood disturbance, and anxiety Status: Acute Plan This is an 83-year-old male with past medical history significant for Alzheimer's dementia, anxiety, cervical spinal stenosis, chronic kidney disease, chronic lock back pain, hypertension, traumatic brain injury, coronary artery disease.? Patient was brought to the emergency room due to altered mental status.?? Acute encephalopathy Due to multiple comorbidities, including dementia, worsening mental status because of pneumonia, dehydration CT shows pneumonia, patient leukocytosis BUN creatinine ratio 22/0.7 suggesting dehydration Switch from normal saline to D5 half-normal saline Neuro check fall precaution (1) Pneumonia: ?Code(s): J18.9 - Pneumonia, unspecified organism ?Status:?Acute ?Assessment and Plan: CT of the chest with right upper lobe pneumonia. Patient has leukocytosis 12,900 ... Trending down to baseline Admit to regular medical floor Patient started on antibiotic Await cultures Follow-up procalcitonin Requested speech evaluation, unable to perform because patient was unable to follow commands Risk of aspiration, continue Zosyn (2) Cervical spinal stenosis: ?Code(s): M48.02 - Spinal stenosis, cervical region ?Status:?Acute ?Assessment and Plan: Continue to monitor (3) Chronic low back pain without sciatica: ?Qualifiers: ?Back pain laterality:?midline? Qualified Code(s):?M54.50 - Low back pain, unspecified; G89.29 - Other chronic pain ?Code(s): M54.50 - Low back pain, unspecified; G89.29 - Other chronic pain ?Status:?Acute ?Assessment and Plan: Tylenol p.r.n. (4) Alzheimer's dementia: ?Onset Date:?~2004 ?Qualifiers: ?Alzheimer's disease onset:?late onset??Dementia behavioral or psychological symptom:?with mood disturbance??Dementia severity:?severe? Qualified Code(s):?G30.1 - Alzheimer's disease with late onset; F02.C3 - Dementia in other diseases classified elsewhere, severe, with mood disturbance ?Code(s): G30.9 - Alzheimer's disease, unspecified; F02.80 - Dementia in other diseases classified elsewhere, unspecified severity, without behavioral disturbance, psychotic disturbance, mood disturbance, and anxiety ?Status:?Acute ?Assessment and Plan: Continue memantine PT/OT/care coordination consults given. Patient may need home health care/[facility] facility placement. ? Patient seen and examined at bedside during my morning rounds ? Collaborated with patient's nurse at the bedside in detail and addressed all concerns ? Labs, electrolytes, radiology, investigations and test results reviewed ? Consult/Nursing/Ancilliary notes on the chart reviewed and appreciated ? Spoke with patient/family at the bedside and answered all the questions that they had Repeat labs in a.m. Electrolyte replacement as per protocol. Patient will be monitored very closely on the floor. Further recommendations as per the hospital course. Time Spent With Patient Time with patient: 15 - 25 minutes Subjective Date/time seen: 07/07/23 17:50 Interval history: Patient seen and evaluated at bedside. Remains pleasantly confused. Review of Systems Review of Systems: Unable to be obtained. Patient is pleasantly
[2023-07-07] MEDS: levoFLOXacin 750 MG/D5W 150 ML 750 MG/150 ML BAG 100 MG IVPB (21:15)
[2023-07-08] MEDS: IPRATROPIUM 0.5 MG/ALBUTEROL SULFATE 2.5 MG AMPUL.NEB 3 ML INHALATION ×2 (02:09→08:30)
[2023-07-08 06:00] VITALS: BP 114/86; PULSE 67; RESP 20; TEMP 36.2; O2SAT 100
[2023-07-08 06:45] LABS: Basophils Absolute Auto 0.1 K/mm3 (0.0-0.1); Basophils Percent Auto 0.6 % (0.2-1.2); Eosinophils Absolute Auto 0.4 K/mm3 (0-0.3); Eosinophils Percent Auto 3.7 % (0-4.4); Hemoglobin 13.6 g/dL (14.0-18.0); Immature Granulocyte Absolute 0.04 K/mm3 (0.00-0.031); Immature Granulocyte Percent A 0.4 % (0-0.5); Lymphocytes Absolute Auto 1.28 K/mm3 (0.9-3.2); Mean Corpuscular HGB Conc 30.9 g/dl (32-36); Mean Corpuscular Hemoglobin 29.2 pg (26-34); Mean Corpuscular Volume 94.4 fl (80-100); Mean Platelet Volume 10.6 fl (7.4-10.4); Monocytes Absolute Auto 0.7 K/mm3 (0.1-0.6); Neutrophils Absolute Auto 7.4 K/mm3 (1.3-6.7); Neutrophils Percent Auto 75.3 % (45.5-73.1); Platelet Count Result 246 k/mm3 (150-375); Red Blood Count 4.66 M/mm3 (4.6-6.20); White Blood Count 9.9 K/mm3 (4.5-10.0)
[2023-07-08] MEDS: DEXTROSE 5%/0.45% SOD CHL 1,000 ML 125 ML IV CONT ×2 (06:55→15:32)
[2023-07-08] MEDS: PIPERACILLIN/TAZ 4.5G/NS 100ML 4.5 GM/100 ML BAG IVPB (06:55)
[2023-07-08 06:58] LABS: Anion Gap 5 mmol/L (8-16); Blood Urea Nitrogen 10 mg/dL (9-20); Calcium 9.5 mg/dL (8.4-10.2); Carbon Dioxide 24 mmol/L (22-30); Chloride 110 mmol/L (98-107); Estimated CRCL calculation 71 ml/min; Estimated Glomerular Filt Rate > 60; Glucose 112 mg/dL (65-110); Potassium 4.3 mmol/L (3.4-5.0); Sodium 139 mmol/L (137-145)
[2023-07-08] MEDS: ENOXAPARIN 40 MG/0.4 ML SYRINGE SUB-Q (08:24)
[2023-07-08 14:00] VITALS: BP 147/75; PULSE 70; RESP 20; TEMP 36.5; O2SAT 97
--- NOTE | 2023-07-08 18:11 | PM.IMPN ---
Progress Note: A&P Assessment and Plan (1) Pneumonia: Code(s): J18.9 - Pneumonia, unspecified organism Status: Acute (2) Alzheimer's dementia: Onset Date: ~2004 Qualifiers: Alzheimer's disease onset: late onset Dementia severity: severe Dementia behavioral or psychological symptom: with mood disturbance Qualified Code(s): G30.1 - Alzheimer's disease with late onset; F02.C3 - Dementia in other diseases classified elsewhere, severe, with mood disturbance Code(s): G30.9 - Alzheimer's disease, unspecified; F02.80 - Dementia in other diseases classified elsewhere, unspecified severity, without behavioral disturbance, psychotic disturbance, mood disturbance, and anxiety Status: Acute Plan This is an 83-year-old male with past medical history significant for Alzheimer's dementia, anxiety, cervical spinal stenosis, chronic kidney disease, chronic lock back pain, hypertension, traumatic brain injury, coronary artery disease.? Patient was brought to the emergency room due to altered mental status.?? Acute encephalopathy Due to multiple comorbidities, including dementia, worsening mental status because of pneumonia, dehydration CT shows pneumonia, patient leukocytosis Switch from normal saline to D5 half-normal saline Renal functions slowed with the hydration Cut down IV fluids to 75 cc/hour Neuro checks fall precaution (1) Pneumonia: ?Code(s): J18.9 - Pneumonia, unspecified organism ?Status:?Acute ?Assessment and Plan: CT of the chest with right upper lobe pneumonia. Patient has leukocytosis 12,900 ... Trending down to baseline Admit to regular medical floor Patient started on antibiotics Await cultures Follow-up procalcitonin Requested speech evaluation, unable to perform because patient was unable to follow commands Risk of aspiration, initially started on IV Zosyn and Levaquin 07/08/2023: DC IV Zosyn, continue with IV Levaquin (2) Cervical spinal stenosis: ?Code(s): M48.02 - Spinal stenosis, cervical region ?Status:?Acute ?Assessment and Plan: Continue to monitor (3) Chronic low back pain without sciatica: ?Qualifiers: ?Back pain laterality:?midline? Qualified Code(s):?M54.50 - Low back pain, unspecified; G89.29 - Other chronic pain ?Code(s): M54.50 - Low back pain, unspecified; G89.29 - Other chronic pain ?Status:?Acute ?Assessment and Plan: Tylenol p.r.n. (4) Alzheimer's dementia: ?Onset Date:?Qualifiers: ?Alzheimer's disease onset:?late onset??Dementia behavioral or psychological symptom:?with mood disturbance??Dementia severity:?severe? Qualified Code(s):?G30.1 - Alzheimer's disease with late onset; F02.C3 - Dementia in other diseases classified elsewhere, severe, with mood disturbance ?Code(s): G30.9 - Alzheimer's disease, unspecified; F02.80 - Dementia in other diseases classified elsewhere, unspecified severity, without behavioral disturbance, psychotic disturbance, mood disturbance, and anxiety ?Status:?Acute ?Assessment and Plan: Continue memantine PT/OT/care coordination consults given. Patient may need home health care/longterm facility placement. Likely DC in a.m. once arrangements are made ? Patient seen and examined at bedside during my morning rounds ? Collaborated with patient's nurse at the bedside in detail and addressed all concerns ? Labs, electrolytes, radiology, investigations and test results reviewed ? Consult/Nursing/Ancilliary notes on the chart reviewed and appreciated ? Spoke with patient/family at the bedside and answered all the questions that they had Repeat labs in a.m. Electrolyte replacement as per protocol. Patient will be monitored very closely on the floor. Further recommendations as per the hospital course. Time Spent With Patient Time with patient: 15 - 25 minutes Subjective Date/time seen: 07/08/23 18:11 Interval history: Patient ly
[2023-07-08 20:00] VITALS: O2SAT 97
[2023-07-08] MEDS: levoFLOXacin 750 MG/D5W 150 ML 750 MG/150 ML BAG 100 MG IVPB (20:31)
[2023-07-08 22:00] VITALS: BP 151/77; PULSE 79; RESP 16; TEMP 37.3; O2SAT 97
[2023-07-09] MEDS: DEXTROSE 5%/0.45% SOD CHL 1,000 ML 75 ML IV CONT (04:40)
[2023-07-09 06:00] VITALS: BP 185/83; PULSE 71; RESP 16; TEMP 36.9; O2SAT 97
[2023-07-09 06:50] LABS: Basophils Absolute Auto 0.1 K/mm3 (0.0-0.1); Basophils Percent Auto 0.5 % (0.2-1.2); Eosinophils Absolute Auto 0.5 K/mm3 (0-0.3); Eosinophils Percent Auto 4.1 % (0-4.4); Hemoglobin 13.3 g/dL (14.0-18.0); Immature Granulocyte Absolute 0.07 K/mm3 (0.00-0.031); Immature Granulocyte Percent A 0.6 % (0-0.5); Lymphocytes Absolute Auto 1.74 K/mm3 (0.9-3.2); Lymphocytes Percent Auto 15.9 % (18.3-44.2); Mean Corpuscular HGB Conc 32.4 g/dl (32-36); Mean Corpuscular Hemoglobin 29.4 pg (26-34); Mean Corpuscular Volume 90.5 fl (80-100); Mean Platelet Volume 10.6 fl (7.4-10.4); Monocytes Absolute Auto 0.8 K/mm3 (0.1-0.6); Monocytes Percent Auto 7.1 % (2.6-8.5); Neutrophils Absolute Auto 7.9 K/mm3 (1.3-6.7); Neutrophils Percent Auto 71.8 % (45.5-73.1); Platelet Count Result 276 k/mm3 (150-375); Red Blood Count 4.53 M/mm3 (4.6-6.20); Red Cell Distribution Width 12.9 % (11.5-14.5)
[2023-07-09 07:00] VITALS: BP 164/74
[2023-07-09 07:01] LABS: Anion Gap 7 mmol/L (8-16); Blood Urea Nitrogen 11 mg/dL (9-20); Calcium 9.1 mg/dL (8.4-10.2); Carbon Dioxide 26 mmol/L (22-30); Chloride 107 mmol/L (98-107); Estimated CRCL calculation 63 ml/min; Estimated Glomerular Filt Rate > 60; Glucose 110 mg/dL (65-110); Potassium 3.7 mmol/L (3.4-5.0); Sodium 140 mmol/L (137-145)
[2023-07-09] MEDS: ENOXAPARIN 40 MG/0.4 ML SYRINGE SUB-Q (08:53)
[2023-07-09 14:00] VITALS: PULSE 77; RESP 20; TEMP 37.2; O2SAT 96
--- NOTE | 2023-07-09 14:40 | PM.DS ---
DS: Admitting Diagnosis Discharge Date 07/09/2023: Admitting Diagnosis (1) Pneumonia: ?Code(s): J18.9 - Pneumonia, unspecified organism ?Status:?Acute ?Assessment and Plan: Admit to regular medical floor Patient started on antibiotic Await cultures (2) Cervical spinal stenosis: ?Code(s): M48.02 - Spinal stenosis, cervical region ?Status:?Acute ?Assessment and Plan: Continue to monitor (3) Chronic low back pain without sciatica: ?Qualifiers: ?Back pain laterality:?midline? Qualified Code(s):?M54.50 - Low back pain, unspecified; G89.29 - Other chronic pain ?Code(s): M54.50 - Low back pain, unspecified; G89.29 - Other chronic pain ?Status:?Acute ?Assessment and Plan: Tylenol p.r.n. (4) Alzheimer's dementia: ?Onset Date:?~2004 ?Qualifiers: ?Alzheimer's disease onset:?late onset??Dementia behavioral or psychological symptom:?with mood disturbance??Dementia severity:?severe? Qualified Code(s):?G30.1 - Alzheimer's disease with late onset; F02.C3 - Dementia in other diseases classified elsewhere, severe, with mood disturbance ?Code(s): G30.9 - Alzheimer's disease, unspecified; F02.80 - Dementia in other diseases classified elsewhere, unspecified severity, without behavioral disturbance, psychotic disturbance, mood disturbance, and anxiety ?Status:?Acute ?Assessment and Plan: Continue memantine DS: Discharge Diagnosis Discharge Diagnosis (1) Pneumonia: Code(s): J18.9 - Pneumonia, unspecified organism Status: Acute (2) Anemia: Code(s): D64.9 - Anemia, unspecified Status: Acute (3) Vitamin D insufficiency: Code(s): E55.9 - Vitamin D deficiency, unspecified Status: Acute (4) Cervical spinal stenosis: Code(s): M48.02 - Spinal stenosis, cervical region Status: Acute (5) Overweight (BMI 25.0-29.9): Code(s): E66.3 - Overweight Status: Acute (6) Atherosclerotic heart disease of [place] coronary artery without angina pectoris: Onset Date: ~1995 Qualifiers: [place] vs. transplanted heart: [place] heart Qualified Code(s): I25.10 - Atherosclerotic heart disease of [place] coronary artery without angina pectoris Code(s): I25.10 - Atherosclerotic heart disease of [place] coronary artery without angina pectoris Status: Acute (7) Alzheimer's dementia: Onset Date: ~2004 Qualifiers: Alzheimer's disease onset: late onset Dementia severity: severe Dementia behavioral or psychological symptom: with mood disturbance Qualified Code(s): G30.1 - Alzheimer's disease with late onset; F02.C3 - Dementia in other diseases classified elsewhere, severe, with mood disturbance Code(s): G30.9 - Alzheimer's disease, unspecified; F02.80 - Dementia in other diseases classified elsewhere, unspecified severity, without behavioral disturbance, psychotic disturbance, mood disturbance, and anxiety Status: Acute (8) Insomnia: Qualifiers: Insomnia type: unspecified Qualified Code(s): G47.00 - Insomnia, unspecified Code(s): G47.00 - Insomnia, unspecified Status: Acute (9) Vitamin B12 deficiency: Code(s): E53.8 - Deficiency of other specified B group vitamins Status: Acute (10) Chronic low back pain without sciatica: Qualifiers: Back pain laterality: midline Qualified Code(s): M54.50 - Low back pain, unspecified; G89.29 - Other chronic pain Code(s): M54.50 - Low back pain, unspecified; G89.29 - Other chronic pain Status: Acute (11) Constipation: Qualifiers: Constipation type: unspecified constipation type Qualified Code(s): K59.00 - Constipation, unspecified Code(s): K59.00 - Constipation, unspecified Status: Acute DS: Summary Hospital Course Reason for hospitalization: Patient brought to the ER for evaluation of his altered mental status Hospital Course: H&P: HP
[2023-07-09 15:06] VITALS: BMI 10.0
[2023-07-09] MEDS: levoFLOXacin 750 MG/D5W 150 ML 750 MG/150 ML BAG 100 MG IVPB (15:54)
[2023-07-09 18:15] LABS: SARS-CoV-2 RNA PCR Negative (Negative)
== END 2023-07-09 18:15 | DRG 194 ==
LOC: ANHED 20:36 → ANH3MEDSUR 21:21
PROVIDERS: Admitting Provider Internal Medicine; Emergency Provider Emergency Medicine; PCP Family Medicine; Visit Provider Family Medicine
DX: J18.9 Pneumonia, unspecified organism (principal); F02.C3 Dementia in other diseases classified elsewhere, severe, with mood disturbance; G93.40 Encephalopathy, unspecified; G30.1 Alzheimer's disease with late onset; E55.9 Vitamin D deficiency, unspecified; E53.8 Deficiency of other specified B group vitamins; G89.29 Other chronic pain; G47.00 Insomnia, unspecified; I12.9 Hypertensive chronic kidney disease with stage 1 through stage 4 chronic kidney disease, or unspecified chronic kidney disease; I25.10 Atherosclerotic heart disease of native coronary artery without angina pectoris; M48.02 Spinal stenosis, cervical region; M54.50 Low back pain, unspecified; N18.9 Chronic kidney disease, unspecified; Z20.822 Contact with and (suspected) exposure to COVID-19; Z11.52 Encounter for screening for COVID-19; Z87.820 Personal history of traumatic brain injury; Z95.5 Presence of coronary angioplasty implant and graft
CPT/HCPCS: 36415; 71045; 71250; 80048; 80053; 81001; 83605; 83690; 83735; 83880; 84100; 84484; 85025; 85380; 85610; 85730; 86140; 87040; 87635; 87637; 92610; 93005; 94640; 96361; 96365; 96366; 96375; 97161; 97165; 97530; 99285; A9270; G0378; J1650; J1956; J2060; J2543; J7030